=== PATIENT | male | born 2005 | race Caucasian/White ===

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

== ENCOUNTER 2024-07-10 04:13 | Emergency (ER) | payer BC ==
[~2024-07-10] VITALS: Ht 185.4 cm; Wt 77.2 kg
[~2024-07-10 04:13] MED LIST changes: +CYCL-837 PO
[2024-07-10 04:25] VITALS: BP 171/72; PULSE 76; RESP 16; O2SAT 94
[2024-07-10] MEDS ORDERED: CLIN1CAP70 PO (05:54)
[2024-07-10] MEDS ORDERED: IBUP-1456 PO (05:54)
[2024-07-10] MEDS: cefTRIAXone SOD 1,000 MG VL IM ONE (06:06)
[2024-07-10] MEDS: KETOROLAC TROMETH 60MG/2ML VIAL IM ONE (06:07)
== END 2024-07-10 06:10 | disposition home or self-care (01) ==
LOC: ER 04:13
DX: L03.012 Cellulitis of left finger (principal); Z79.899 Other long term (current) drug therapy
CPT/HCPCS: 96372; 99284; J0696; J1885